=== PATIENT | male | born 1950 | race Caucasian/White ===

== ENCOUNTER 2021-08-11 10:41 | Emergency (ER) | payer MEDICARE, OTHER ==
[~2021-08-11] VITALS: Ht 185.4 cm; Wt 90.7 kg
[2021-08-11 10:41] VITALS: BP_SYST 180
[2021-08-11] MEDS ORDERED: iohexoL 350 mgI/mL, 100 ML INFUS..BTL IV ONE (10:54)
[2021-08-11 11:22] LABS: BASOPHILS # (AUTO) 0.1 K/uL (0.0-0.2); BASOPHILS % (AUTO) 0.6 % (0.0-2.0); EOSINOPHILS % (AUTO) 0.2 % (0.0-4.0); HEMATOCRIT 44.8 % (36-54); HEMOGLOBIN 15.5 g/dL (14.0-18.0); LYMPHOCYTES # (AUTO) 0.6 K/uL (1.0-5.5); LYMPHOCYTES % (AUTO) 5.5 % (20.5-51.5); MEAN CORPUSCULAR HEMOGLOBIN 33 pg (27-31); MEAN CORPUSCULAR HGB CONC 35 % (32-36); MEAN CORPUSCULAR VOLUME 97 fL (79.0-98.0); MONOCYTES # (AUTO) 0.2 K/uL (0.0-1.0); MONOCYTES % (AUTO) 1.6 % (1.7-9.3); NEUTROPHILS # (AUTO) 9.9 K/uL (1.8-7.7); NEUTROPHILS % (AUTO) 92.1 % (40.0-70.0); PLATELET COUNT (AUTO) 96 K/uL (130-430); RED BLOOD CELL COUNT(AUTO) 4.64 MIL/uL (4.2-6.2); RED CELL DISTRIBUTION WIDTH 15.2 % (9.0-15.0); WHITE BLOOD COUNT (AUTO) 10.7 K/uL (4.8-10.8)
[2021-08-11 11:27] LABS: ANION GAP 12 (5-15); CALCIUM 9.2 mg/dL (8.4-11.0); CHLORIDE 101 mmol/L (98-107); CREATININE 0.78 mg/dL (0.55-1.30); GLUCOSE 180 mg/dL (70-99); POTASSIUM 3.5 mmol/L (3.5-5.1); SODIUM SERUM 138 mmol/L (136-145); UREA NITROGEN, BLOOD 23 mg/dL (8-21)
[2021-08-11 11:30] LABS: INR 1.4 (0.80-1.20); PROTHROMBIN TIME 14.3 SECS (9.5-12.5)
[2021-08-11] MEDS ORDERED: dilTIAZem HCL IVP 5 MG/ML VIAL IVP ONE (11:30)
[2021-08-11] MEDS ORDERED: DILTIAZEM HCL 60 MG TABLET PO ONE (11:30)
[2021-08-11 11:36] LABS: ALANINE AMINOTRANSFERASE 18 U/L (12-78); ALBUMIN 3.5 g/dL (3.4-4.8); ASPARTATE AMINOTRANSFERASE 27 U/L (10-37)
[2021-08-11] MEDS ORDERED: ASPIRIN 81 MG TABLET(ECOTRIN) PO ONE (12:45)
[2021-08-11 16:14] VITALS: BP_SYST 129
== END 2021-08-11 16:12 | disposition short-term general hospital (02) ==
LOC: SED 10:41
DX: G45.9 Transient cerebral ischemic attack, unspecified (principal); I48.20 Chronic atrial fibrillation, unspecified; Z79.899 Other long term (current) drug therapy; Z20.822 Contact with and (suspected) exposure to COVID-19
CPT/HCPCS: 99285; 70496; 96374; 71045; 87426; 80053; 85025; 85610; 85730; 84484; 36415; 93005; 70498; 70450; 76376; Q9967; J3490; 96365